=== PATIENT | female | born 1955 | race Two or more races ===

== ENCOUNTER → 2025-10-14 | Emergency (ER) | payer OTHER ==
[~2025-10-14] VITALS: Ht 160 cm; Wt 68.5 kg
[~2025-10-14] MED LIST: ACID REDUCER20 M1 PO; KETOROLAC TROMETHAMINE 30 MG VIAL IM ONE; KETOROLAC TROMETHAMINE 30 MG VIAL ONE; LIPITOR40 M1 PO
[2025-10-14 19:22] LABS: BASO % 0.5 % (0.1-1.2); EOS # 0.21 (0.04-0.54); EOS % 1.5 % (0.7-7.0); LYMPH # 2.02 (1.18-3.74); LYMPH % 14.1 % (19.3-53.1); MEAN PLATELET VOLUME 10.40 fl (9.4-12.4); MONO # 0.96 (0.24-0.82); MONO % 6.7 % (4.7-12.5); NEUT # 11.01 (1.56-6.13); NEUT % 76.9 % (34.0-71.1); RED CELL DISTRIBUTION WIDTH 20.6 % (11.6-14.4)
[2025-10-14 19:45] LABS: INR < 0.93
[2025-10-14 19:54] LABS: ALT/SGPT 23.0 U/L (12-78); AST/SGOT 24.0 U/L (15-37); BILIRUBIN TOTAL 0.41 mg/dL (0.3-1.2); BUN CREA RATIO 29.0 (7.0-25.0); CREATININE SERUM 0.82 mg/dL (0.55-1.02); GFR 68.92; GLOBULINA 3.2 G/DL (2.4-3.5); GLUCOSE FASTING 111.0 mg/dL (65-100); OSMOLALITY SERUM 295.0 MOSM/KG (275-295)
== END | disposition home or self-care (01) ==
LOC: ER 13:41
PROVIDERS: Student in an Organized Health Care Education/Training Program
DX: S52.691A Other fracture of lower end of right ulna, initial encounter for closed fracture (principal); W19.XXXA Unspecified fall, initial encounter; Y93.89 Activity, other specified; Y92.89 Other specified places as the place of occurrence of the external cause; Y99.8 Other external cause status; I10 Essential (primary) hypertension
CPT/HCPCS: 29125; 36415; 71046; 71111; 73110; 73502; 93005; 96372; 99283; J1885

== ENCOUNTER 2025-10-17 22:18 | Day surgery (SDC) | payer OTHER ==
[~2025-10-17 22:18] MED LIST changes: +CEFAZOLIN SODIUM 1,000 MG VIAL ONE; -KETOROLAC TROMETHAMINE 30 MG VIAL IM ONE; -KETOROLAC TROMETHAMINE 30 MG VIAL ONE; +SUGAMMADEX SODIUM 200 MG/2 ML VIAL IV ONE
== END 2025-10-17 22:50 | disposition home or self-care (01) ==
LOC: CIR.AMB 22:18
PROVIDERS: ATTEND Orthopaedic Surgery
DX: S52.571A Other intraarticular fracture of lower end of right radius, initial encounter for closed fracture (principal); M24.531 Contracture, right wrist
CPT/HCPCS: 25609; 25280; L8699